=== PATIENT | male | born 1985 | race Caucasian/White ===

== ENCOUNTER 2017-04-10 17:00 | Emergency (ER) | payer SELFPAY ==
[~2017-04-10] VITALS: Ht 175.3 cm; Wt 65.0 kg
[2017-04-10 17:14] VITALS: BP 115/77; PULSE 78; RESP 18; TEMP 98.6; O2SAT 100
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
[2017-04-10] MEDS ORDERED: TETANUS/DIPHTHERIA TOXOID ADULT 0.5 ML VIAL IM ONE (17:30)
[2017-04-10] MEDS ORDERED: MORPHINE SULFATE 4 MG/ML INJ IV PUSH ONE (17:30)
[2017-04-10] MEDS ORDERED: ALPR.25 PO (17:53)
[2017-04-10] MEDS ORDERED: BACITRACIN TOP OINT 15 GM TUBE TOPICAL ONE (18:15)
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
[2017-04-10] MEDS ORDERED: HYDR-3516 PO (19:09)
== END 2017-04-10 19:37 | disposition home or self-care (01) ==
LOC: NEPE 17:00
DX: S42.021A Displaced fracture of shaft of right clavicle, initial encounter for closed fracture (principal); S80.212A Abrasion, left knee, initial encounter; V17.0XXA Pedal cycle driver injured in collision with fixed or stationary object in nontraffic accident, initial encounter; Y93.55 Activity, bike riding; R07.81 Pleurodynia; M25.521 Pain in right elbow; F41.9 Anxiety disorder, unspecified
CPT/HCPCS: 71101; 73030; 73070; 90471; 90714; 96374; 99284; J2270